=== PATIENT | female | born 1950 | race African-American/Black ===

== ENCOUNTER 2018-06-18 10:05 | Day surgery (SDC) | payer MEDICARE, OTHER ==
[2018-06-17 15:18] LABS: HEMATOCRIT 41.9 % (36.0-48.0); HEMOGLOBIN 14.4 g/dL (12-16); MCH 27.9 pg (26.0-34.0); MCHC 34.4 g/dL (31.0-37.0); MCV 81.2 fL (80.0-100.0); MEAN PLATELET VOLUME 10.6 fL (7.4-10.4); RBC 5.16 10x6/uL (4.00-5.40); RDW 13.3 % (11.5-14.5); WBC 6.4 10x3/uL (4.8-10.8)
[~2018-06-18] VITALS: Ht 167.6 cm; Wt 86.2 kg
--- NOTE | ~2018-06-18 | OP ---
PATIENT NAME: BENNY STOVALL MEDICAL RECORD: [id number] :50 LOCATION:D.OPS ADMISSION DATE: SURGEON: DEX LENTZ DATE OF OPERATION: 06/18/2018 SURGEON: Dex Lentz DPM PREOPERATIVE DIAGNOSES: 1. Hallux abductovalgus deformity, left foot. 2. Hammertoe deformity, third toe, left foot. POSTOPERATIVE DIAGNOSES: 1. Hallux abductovalgus deformity, left foot. 2. Hammertoe deformity, third toe, left foot. PROCEDURES: 1. Mike-Cruz bunionectomy, left foot. 2. Arthrodesis, third distal interphalangeal joint, left foot. ANESTHESIA: General. HEMOSTASIS: Pneumatic ankle tourniquet inflated to 250 mmHg. ESTIMATED BLOOD LOSS: Minimal. MATERIALS: Two 2.5-mm Owlparrot screws and one Owlparrot Quick Staple. INJECTABLES: 20 cc of 0.5% bupivacaine plain. The patient has long-standing history of pain associated with the above-mentioned foot deformities. She has tried wider shoes to no avail. We have discussed surgical correction. We reviewed the risks and benefits of the procedure. Complications were reviewed. All questions were answered. She was appropriately consented for the above-mentioned procedures. DESCRIPTION OF PROCEDURE: The patient was brought in the operating room and placed on the operating table in the supine position. Time-out was called with Dr. Lentz, who identified the patient, the surgical site, and the surgery to be performed. Once appropriate anesthesia was obtained, the foot was prepped and draped in the usual aseptic manner. The pneumatic ankle tourniquet was inflated to 250 mmHg on the well-padded left ankle. PROCEDURE #1: MIKE-CRUZ BUNIONECTOMY, LEFT FOOT. Attention was directed to the dorsal aspect of the first metatarsophalangeal joint, where a 6-cm linear incision was made just medial to the extensor hallucis longus tendon. This incision was carried deep to soft tissue with care being taken to retract all vital neurovascular structures. All bleeders were cauterized along the way. The first intermetatarsal space was then entered utilizing both sharp and blunt dissection. The fibular sesamoidal ligament was identified and sharply transected. The conjoined tendon of the adductor hallucis muscle was also identified at the base of proximal phalanx and sharply transected. Attention was then redirected to the dorsal aspect of the first metatarsophalangeal joint, OPERATIVE REPORT [id number] BENNY STOVALL where the periosteum was reflected from the head of the first metatarsal and the base of the proximal phalanx, thus exposing the hypertrophied medial eminence of the first metatarsal. Utilizing a sagittal saw, the medial eminence was resected. Next, utilizing a sagittal saw, a V-shaped osteotomy was created in the head of the first metatarsal. This was a xlgobtr-pmo-tpyudgb osteotomy with the apex oriented distally. The capital fragment shifted laterally and impacted upon the first metatarsal shaft. Next, utilizing senior foreman's recommended technique, one 2.5-mm screw was placed across the osteotomy. Excellent fixation was noted after placement of the screw. The temporary K-wire was removed and all over hanging bone from the medial aspect of the first metatarsal shaft was resected. CRUZ OSTEOTOMY, LEFT FOOT. Attention was directed to the dorsal aspect of the proximal phalanx of the great toe, where a V-shaped osteotomy was created in the toe. This was a xukegax-qxe-locnmdo osteotomy with the apex oriented laterally. The wedge of bone was then removed and the osteotomy was reduced. Next, utilizing senior foreman's recommended technique, one Owlparrot Quick Staple was placed across the osteotomy. Excellent fixation was noted after placement of the screw. The surgical site was then irrigated with copious amounts of normal sterile saline via bulb syringe. The periosteum was reapproximated and coapted using 3-0 Vicryl. The subcutaneous was reapproximated and coapted using 4-0 Vicryl. The skin was reapproximated and coapted using 4-0 nylon. ARTHRODESIS, THIRD TOE, LEFT FOOT. Attention was directed to the third toe of the left foot, where a 3-cm linear incision was made. This incision was carried deep through soft tissue with care being taken to retract all vital neurovascular structures. All bleeders were cauterized along the way. The extensor tendon was then transected from medial to lateral at the level of distal interphalangeal joint. The soft tissue attachments were then reflected from the head of the middle phalanx, thus exposing the head of this bone. Next, utilizing a single action bone cutter, the head of the middle phalanx was removed. All cartilage was then denuded from the base of the distal phalanx utilizing a #15 blade and curette. Next, utilizing senior foreman's recommended technique, one 2.5-mm screw was placed across the distal interphalangeal joint. Excellent fixation was noted with placement of the screw. The surgical site was then irrigated with copious amounts of normal sterile saline via bulb syringe. The extensor tendon was then reapproximated and coapted using 3-0 Vicryl. The subcutaneous was reapproximated and coapted using 4-0 Vicryl. The skin was reapproximated and coapted using 4-0 nylon. A dressing consisting of Xeroform, 4 x 4's, Kerlix, and Alonso bandage was applied to the left foot. The pneumatic ankle tourniquet was deflated and cap refill time was immediate to all digits of the left foot. The patient tolerated the procedure and the anesthesia well. She left the operating with vital signs stable and cap refill time intact. OPERATIVE REPORT [id number] BENNY STOVALL The patient was discharged home with instructions to ice and elevate the left foot. She has a boot to help offload the surgical site. She has my cell phone number for any after hour difficulties and there were no complications with this procedure. TRANSINT:[id number] Voice Confirmation ID: [id number] DOCUMENT ID: [id number] DEX LENTZ at 1813 CC: [id number] DICTATION DATE: 06/18/18 1528 [facility]CCUP[facility] PHYSIOTHERAPIST: 06/18/18 1822 [facility] 06/18/18 [id number] [place] [id number]
[~2018-06-18 10:05] MED LIST: TRIAMT/HCTZ TAB 37.; ZIAC 10-6.25 MG1 TAB PO
[2018-06-18 10:52] VITALS: BP 142/76; Ht 167.6 cm; Wt 86.2 kg
== END 2018-06-18 17:04 | disposition home or self-care (01) ==
LOC: D.OPS 10:05 → D.PAN 11:45 → D.OPS 11:45 → D.PAN 12:30 → D.OPS 17:04
PROVIDERS: Anesthesiology
DX: M20.12 Hallux valgus (acquired), left foot (principal); M20.42 Other hammer toe(s) (acquired), left foot; Z01.812 Encounter for preprocedural laboratory examination